=== PATIENT | male | born 1990 | race Caucasian/White ===

== ENCOUNTER → 2021-04-26 11:00 | Outpatient (BNVA) | payer OTHER, SELFPAY | PROVIDERS: Visit Provider Urology ==

== ENCOUNTER → 2021-07-25 14:28 | Outpatient (BNVA) | payer OTHER, SELFPAY | PROVIDERS: Visit Provider Urology ==

== ENCOUNTER 2022-02-22 15:19 | Outpatient (AMB) | payer OTHER, SELFPAY ==
--- NOTE | 2022-02-22 10:59 | A.OFFVIS_ITS ---
Intake Intake Visit Reasons: 3 mth follow up Erectile Dysfunction Intake Note: Patient is present for 3 month follow up Current Urology Medications Sildenafil, tadalafil Reports no medication changes Safemaker Required: No Accompanied by: Self / Same As Patient Allergies No Known Allergies Allergy (Verified 02/22/22 10:59) HPI HPI Comments History of Present Illness Details Joaquin is very pleasant [place] male. He is accompanied by his was rajinder. He is seen for the following urologic conditions - erectile dysfunction in setting of typ e 1 diabetes Partial response to daily tadalafil 10 mg Add on demand sildenafil 100 mg Review in 3 months Erectile dysfunction Progressive Failed oral medications - failed daily tadalafil 10 mg On insulin pump Discussed combination maximal oral daily therapy Follow-up 3 months [facility] Medical History Diabetes HTN (hypertension) Surgical History H/O eye surgery Social History Alcohol intake: never Patient Tobacco Use Status: Never used Tobacco Review of Systems Const Denies chills and Denies fever(s) Card Reports no additional complaints and Denies syncope Resp Denies cough GI Denies abdominal pain and Denies heartburn Reports as per HPI and Denies change in libido Neuro Denies syncope Psych Denies change in libido Endo Denies change in libido Physical Exam Const General: cooperative, healthy appearing, comfortable and no acute distress Orientation/consciousness: patient oriented x3 HEENT Face and sinus: Yes normal facial exam Mouth: moist mucous membranes Neck Neck: Yes normal visual inspection, Yes full ROM and Yes trachea midline Chest Chest palpation & inspection: normal inspection of the chest Resp Effort & Inspection: normal respiratory effort, able to speak in complete sentences and no respiratory distress GI Inspection: Yes normal to inspection Back/Spine/Pelvis Cervical Spine: normal cervical lordosis Thoracic/Lumbar Spine: thoracic and lumbar spine normal to inspection Skin General skin exam: no rashes or lesions noted Neuro General: patient oriented x3, gait normal, tone normal and moves all extremities Extrem General: Yes normal to inspection and Yes capillary refill normal Assessment & Plan Assessment & Plan (1) Erectile dysfunction associated with type 2 diabetes mellitus: Code(s): E11.69 - Type 2 diabetes mellitus with other specified complication; N52.1 - Erectile dysfunction due to diseases classified elsewhere Plan 6m f/u Patient Instructions: Imaging studies, laboratory and physical exam results were discussed and reviewed in detail. No major barriers to patient understanding were identified. An opportunity to ask questions regarding the treatment plan was provided. All questions were answered. The patient expressed understanding and agreement with the above treatment plan. The patient is aware they should contact our office by phone for worsening of their current condition or the appearance of new urologic symptoms. Compliance is encouraged with any medications and followup testing that is ordered. It is a privilege to participate in the urologic care of your patient. If you have any questions or concerns regarding treatment for the above conditions, or other urologic issues, please do not hesitate to contact me. The office telephone contact is [phone]. This note is constructed using voice recognition software. While every effort has been made to ensure accuracy dowel sticker operator errors may have been included. Yours sincerely, Dr Gordon Reese MD, [facility] Urology Providers of Expert, Compassionate Care for the Genitourinary System Coding Level of Care Code Est Pt Level 3 (80446) Diagnoses Erectile dysfunction associated with type 2 diabetes mellitus E11.69; N52.1
== END 2022-02-22 15:43 | disposition home or self-care (01) ==
LOC: HO.HUSH 15:19
PROVIDERS: Visit Provider Urology
DX: E11.69 Type 2 diabetes mellitus with other specified complication (principal); N52.1 Erectile dysfunction due to diseases classified elsewhere
CPT/HCPCS: 99499